=== PATIENT | male | born 1950 | race Caucasian/White ===

== ENCOUNTER 2018-11-07 22:00 | Emergency (ER) | payer OTHER, MEDICARE ==
[~2018-11-07] VITALS: Ht 167.6 cm; Wt 92.0 kg
[2018-11-07] MEDS ORDERED: SODIUM CHLORIDE FLUSH 10ML SYR IVF ONE (22:30)
[2018-11-07] MEDS ORDERED: PROPOFOL 10 MG/ML, 20ML IVPush ONE (22:30)
[2018-11-07] MEDS ORDERED: PLEASE ENTER ALLERGIES MC SCH (22:30)
[2018-11-07] MEDS ORDERED: MORPHINE SULFATE 4 MG/ML, 1ML IVPush PRN (22:30)
[2018-11-07] MEDS ORDERED: MORPHINE SULFATE 4 MG/ML, 1ML ONE (22:45)
--- NOTE | 2018-11-07 22:56 | NUR ---
PT MEDICATED PER EMAR, 5 RIGHTS ADDRESSED
--- NOTE | 2018-11-07 23:02 | NUR ---
pt needs to remove upper clothing before Rib exam. need stabilize ankle before rib exam
[2018-11-07] MEDS ORDERED: PROPOFOL 10 MG/ML, 20ML ONE (23:21)
--- NOTE | 2018-11-07 23:21 | NUR ---
SHIRTS REMOVED FOR XRAY
--- NOTE | 2018-11-07 23:42 | NUR ---
CONSENT SIGNED FOR CONSCIOUS SEDATION. PT ON MONITORING EQUIPMENT AND O2 VIA NC. FLUIDS HANGING. ALL VITALS STABLE AT THIS TIME. AWAITING ERP FOR PROCEDURE
--- NOTE | 2018-11-08 00:34 | NUR ---
LATE ENTRY: CONSCIOUS SEDATION PROCEDURE STARTED AT 0003, A TOTAL OF 100MG OF PROPOFOL WAS GIVEN. PT TOLERATED WELL, AIRWAY REMAINED PATENT AND O2 SATS ABOVE 92%. PROCEDURE WAS COMPLETED AT 0007. VITALS REMAINS STABLE THROUGHOUT PROCEDURE. PT AWAKE PROMPTLY FOLLOWING PROCEDURE. ALERT AND ORIENTED. DENIES ANY COMPLAINTS AT THIS TIME. FAMILY AT BEDSIDE. PT REMAINS ATTACHED TO MONITORING EQUIPMENT. STILL AWAITING RIB XRAY DESPITE PT BEING IN APPROPRIATE CLOTHING. LEG IS SPLINTED.
--- NOTE | 2018-11-08 01:09 | NUR ---
PT BACK FROM XRAY
[2018-11-08 01:13] VITALS: BP 140/79
--- NOTE | 2018-11-08 01:42 | NUR ---
PTS CHART UP FOR RECHECK
--- NOTE | 2018-11-08 02:38 | NUR ---
TASK RN: IS PROVIDED TO PT AND PT DEMONSTRATES UNDERSTANDING. PT TRANSFERED TO WHEELCHAIR WITH STANDBY ASSISTANCE. DC EDUCATION PROVIDED, PT DEMONSTRATES UNDERSTANDING. PT WHEELED TO DC WITH RN AND FAMILY, FAMILY TO TRANSPORT PT HOME.
== END 2018-11-08 02:42 | disposition home or self-care (01) ==
LOC: ED 23:45
DX: S82.61XA Displaced fracture of lateral malleolus of right fibula, initial encounter for closed fracture (principal); S22.41XA Multiple fractures of ribs, right side, initial encounter for closed fracture; S93.04XA Dislocation of right ankle joint, initial encounter; S93.334A Other dislocation of right foot, initial encounter; I10 Essential (primary) hypertension; E11.9 Type 2 diabetes mellitus without complications; Z95.5 Presence of coronary angioplasty implant and graft; W01.0XXA Fall on same level from slipping, tripping and stumbling without subsequent striking against object, initial encounter; Y92.009 Unspecified place in unspecified non-institutional (private) residence as the place of occurrence of the external cause; Y93.89 Activity, other specified; Y99.8 Other external cause status
CPT/HCPCS: 27788; 27840; 96372; 99152; 99285